=== PATIENT | female | born 1980 | race Caucasian/White ===

== ENCOUNTER 2018-06-30 18:57 | Emergency (ER) | payer OTHER ==
[~2018-06-30] VITALS: Ht 175.3 cm; Wt 136.1 kg
[~2018-06-30 18:57] MED LIST: ACETAMINOPHEN325 M1 PO; CLEOCIN HCL300 MG PO; NOHOMEMEDICATIONS; NORCO 5-325 TA1 EACH PO
[2018-06-30] MEDS ORDERED: ZPAK PO (19:49)
[2018-06-30] MEDS ORDERED: VENTOLIN HFA 1818 GM INH (19:49)
[2018-06-30] MEDS ORDERED: PREDNISONE 20 M20 MG PO (19:49)
[2018-06-30] MEDS ORDERED: BENZONATATE200 MG PO (19:49)
[2018-06-30 20:05] VITALS: BP 164/102
== END 2018-06-30 20:06 | disposition home or self-care (01) ==
LOC: M.ERS 18:57
DX: J18.9 Pneumonia, unspecified organism (principal); Z88.0 Allergy status to penicillin; Z88.6 Allergy status to analgesic agent

== ENCOUNTER 2019-02-05 03:35 | Emergency (ER) | payer OTHER ==
[~2019-02-05] VITALS: Ht 172.7 cm; Wt 136.1 kg
[~2019-02-05 03:35] MED LIST changes: +BENZONATATE200 MG PO; +PREDNISONE 20 M20 MG PO; +VENTOLIN HFA 1818 GM INH; +ZPAK PO
[2019-02-05] MEDS ORDERED: MEDROLDOSEPACK PO (04:34)
[2019-02-05] MEDS ORDERED: HYDROCODON-ACE1 EAC8 PO (04:34)
[2019-02-05] MEDS ORDERED: FLEXERIL PO (04:34)
[2019-02-05 05:09] VITALS: BP 155/78
== END 2019-02-05 05:10 | disposition home or self-care (01) ==
LOC: M.ERS 03:35
DX: M54.16 Radiculopathy, lumbar region (principal); I10 Essential (primary) hypertension; Z98.51 Tubal ligation status; Z88.0 Allergy status to penicillin; Z88.6 Allergy status to analgesic agent

== ENCOUNTER 2019-03-10 15:29 | Emergency (ER) | payer OTHER ==
[~2019-03-10] VITALS: Ht 175.3 cm; Wt 136.1 kg
[~2019-03-10 15:29] MED LIST changes: +FLEXERIL PO; +HYDROCODON-ACE1 EAC8 PO; +MEDROLDOSEPACK PO
[2019-03-10 16:20] LABS: INFLUENZA A ANTIGEN Negative (Negative); INFLUENZA B ANTIGEN Negative (Negative)
[2019-03-10] MEDS ORDERED: TYLENOL WITH CO1 TA1 PO (16:26)
[2019-03-10] MEDS ORDERED: TESSALON PERLE100 MG PO (16:26)
[2019-03-10] MEDS ORDERED: ZPAK PO (16:26)
[2019-03-10] MEDS ORDERED: PROAIR HFA8.5 GM INH (16:26)
[2019-03-10] MEDS ORDERED: MEDROLDOSEPACK PO (16:26)
[2019-03-10 16:59] VITALS: BP 154/97
== END 2019-03-10 16:59 | disposition home or self-care (01) ==
LOC: M.ERS 15:29
PROVIDERS: Family Medicine
DX: J20.9 Acute bronchitis, unspecified (principal); I10 Essential (primary) hypertension; Z88.0 Allergy status to penicillin; Z88.6 Allergy status to analgesic agent; Z98.51 Tubal ligation status

== ENCOUNTER 2019-05-02 01:46 | Emergency (ER) | payer OTHER ==
[~2019-05-02] VITALS: Ht 175.3 cm; Wt 136.1 kg
[~2019-05-02 01:46] MED LIST changes: +PROAIR HFA8.5 GM INH; +TESSALON PERLE100 MG PO; +TYLENOL WITH CO1 TA1 PO
[2019-05-02 02:50] VITALS: BP 170/88
== END 2019-05-02 02:50 | disposition home or self-care (01) ==
LOC: M.ERS 01:46
DX: R13.10 Dysphagia, unspecified (principal); I10 Essential (primary) hypertension; Z88.6 Allergy status to analgesic agent; Z88.0 Allergy status to penicillin; Z98.51 Tubal ligation status

== ENCOUNTER 2019-09-04 16:00 | Emergency (ER) | payer OTHER ==
[~2019-09-04] VITALS: Ht 172.7 cm; Wt 121.6 kg
[2019-09-04] MEDS ORDERED: METFORMIN HCL500 M3 PO (16:24)
[2019-09-04] MEDS ORDERED: PHENTERMINE H37.5 M1 PO (16:24)
[2019-09-04] MEDS ORDERED: OMEPRAZOLE40 MG PO (16:25)
[2019-09-04 17:55] LABS: ABSOLUTE BASOPHILS 0.1 thou/uL (0.0-0.2); ABSOLUTE EOSINOPHILS 0.1 thou/uL (0.0-0.7); ABSOLUTE LYMPHOCYTES 2.2 thou/uL (0.8-5.3); ABSOLUTE MONOCYTES 0.4 thou/uL (0.0-1.2); ABSOLUTE NEUTROPHILS 4.4 thou/uL (1.6-8.1); BASOPHILS 0.9 %; EOSINOPHILS 1.2 %; HEMATOCRIT 34.3 % (37.0-47.0); HEMOGLOBIN 11.1 gm/dL (12.0-15.0); LYMPHOCYTES 30.9 %; MCHC 32.4 g/dL (28.0-37.0); MCV 73.9 fL (80.0-100.0); MPV 8.7 fl. (7.2-11.1); NUCLEATED RBCS 0 /100WBC; PLATELET COUNT* 219 thou/uL (150-400); RBC 4.64 mil/uL (4.20-5.00); WBC 7.2 thou/uL (4.0-11.0)
[2019-09-04 18:06] LABS: CALCIUM 8.8 mg/dL (8.5-10.1); POTASSIUM 3.6 mmol/L (3.5-5.1)
[2019-09-04 18:11] LABS: ALBUMIN 3.9 g/dL (3.4-5.0); TOTAL BILIRUBIN 0.3 mg/dL (<0.1-1.0); TOTAL PROTEIN 7.7 g/dL (6.4-8.2)
[2019-09-04] MEDS ORDERED: ZPAK PO (18:36)
[2019-09-04] MEDS ORDERED: VENTOLIN HFA 1818 GM INH (18:36)
[2019-09-04] MEDS ORDERED: ZANAFLEX4 MG PO (18:36)
[2019-09-04] MEDS ORDERED: NORCO 5-325 TA1 EAC2 PO (18:36)
[2019-09-04 19:09] VITALS: BP 135/89
--- NOTE | 2019-09-05 15:05 | EKG ---
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: [facility] : 1980 Requested By: Jessica Lawson Order Number: [id number] MD: Torito Brown Measurements Intervals [place] Rate: 61 P: 10 [place]: 155 QRS: -7 QRSD: 101 T: -10 QT: 406 QTc: 409 Interpretive Statements Sinus rhythm Borderline T abnormalities, inferior leads No previous ECG available for comparison Electronically Signed On 09-05-2019 15:05:06 CDT by Torito Brown [email or web address] <ELECTRONICALLY SIGNED> By: Torito Brown MD, [facility] 09/05/19 1505 1716 Torito Brown MD, FAC /EPI
== END 2019-09-04 19:09 | disposition home or self-care (01) ==
LOC: M.ERS 16:00
PROVIDERS: Nurse Practitioner Family
DX: M25.462 Effusion, left knee (principal); J06.9 Acute upper respiratory infection, unspecified; R07.89 Other chest pain; I10 Essential (primary) hypertension; Z88.0 Allergy status to penicillin; Z88.6 Allergy status to analgesic agent; Z98.51 Tubal ligation status

== ENCOUNTER 2020-04-12 11:22 | Emergency (ER) | payer OTHER ==
[~2020-04-12] VITALS: Ht 172.7 cm; Wt 79.4 kg
[~2020-04-12 11:22] MED LIST changes: +METFORMIN HCL500 M3 PO; +NORCO 5-325 TA1 EAC2 PO; +OMEPRAZOLE40 MG PO; +PHENTERMINE H37.5 M1 PO; +ZANAFLEX4 MG PO
[2020-04-12] MEDS ORDERED: VITAMIN D21250 MC1 PO (11:43)
[2020-04-12] MEDS ORDERED: ANUCORT-HC25 MG RECTAL (12:01)
[2020-04-12] MEDS ORDERED: HYDROCODON-ACE1 EAC7 PO (12:01)
[2020-04-12 12:34] VITALS: BP 122/86
== END 2020-04-12 12:35 | disposition home or self-care (01) ==
LOC: M.ERS 11:22
DX: K62.5 Hemorrhage of anus and rectum (principal); I10 Essential (primary) hypertension; Z88.0 Allergy status to penicillin; Z88.6 Allergy status to analgesic agent; Z98.51 Tubal ligation status

== ENCOUNTER 2020-12-23 11:06 | Emergency (ER) | payer OTHER ==
[~2020-12-23] VITALS: Ht 175.3 cm; Wt 81.7 kg
[~2020-12-23 11:06] MED LIST changes: +ANUCORT-HC25 MG RECTAL; +HYDROCODON-ACE1 EAC7 PO; +VITAMIN D21250 MC1 PO
[2020-12-23] MEDS ORDERED: CLEOCIN HCL300 MG PO (11:20)
[2020-12-23] MEDS ORDERED: ZOVIRAX30 GM TOP (11:57)
[2020-12-23] MEDS ORDERED: ACYCLOVIR 400400 MG PO (11:57)
[2020-12-23 12:17] VITALS: BP 148/85
[2020-12-29 16:06] LABS: HSV 1 DNA Positive (Negative); HSV 2 DNA Negative (Negative)
== END 2020-12-23 12:18 | disposition home or self-care (01) ==
LOC: M.ERS 11:06
PROVIDERS: Nurse Practitioner Family
DX: R23.8 Other skin changes (principal); R21 Rash and other nonspecific skin eruption; I10 Essential (primary) hypertension; K21.9 Gastro-esophageal reflux disease without esophagitis; Z98.51 Tubal ligation status; Z79.899 Other long term (current) drug therapy; Z88.0 Allergy status to penicillin; Z88.6 Allergy status to analgesic agent